=== PATIENT | male | born 1990 | race African-American/Black ===

== ENCOUNTER 2021-07-22 13:56 | Emergency (ER) | payer SELFPAY ==
--- NOTE | 2021-07-22 15:24 | RAD REPORT ---
EXAM DESCRIPTION: RAD - Knee Right 3 View - 07/22/2021 3:15 pm CLINICAL HISTORY: knee pain COMPARISON: No comparisonsNo comparisons FINDINGS: No fracture, dislocation or periosteal reaction.No joint effusion seen. No joint space lydia rowing. No foreign body or other soft tissue abnormality. IMPRESSION: Negative right knee. Clinical concerns for internal derangement or occult bony injury could be further assessed with MR im aging.
--- NOTE | 2021-07-22 15:31 | EDPHYS ---
Physician Documentation [facility] Name: Velasquez Guerrier Jr Age: 30 yrs Sex: Male : 1990 Arrival Date: 07/22/2021 Time: 14:12 Bed Treatment Private MD: ED Physician Kerwin Carlin HPI: 07/22 14:36 This 30 yrs old Black Male presents to ER via Ambulatory with complaints of Knee Pain. jmm 14:36 The patient presents with an injury, pain. Onset: The symptoms/episode began/occurred jmm acutely, just prior to arrival. Modifying factors: The symptoms are alleviated by nothing. the symptoms are aggravated by nothing. Associated signs and symptoms: Pertinent positives: swelling. This is a 30 year old male with a history of asthma, that presents to the ED with complaints of right knee pain. Patient states his right knee cap popped out of place 3 weeks ago and has had pain since. Denies other injury. . Historical: - Allergies: 14:30 No Known Allergies; ss - PMHx: 14:30 Asthma; ss - PSHx: 14:30 jaw SX; B arm SX; ss - Immunization history:: Client reports receiving the 2nd dose of the Covid vaccine. - Social history:: Smoking status: Patient denies any tobacco usage or history of. ROS: 14:36 Constitutional: Negative for fever, chills, and weight loss, Cardiovascular: Negative jmm for chest pain, palpitations, and edema, Respiratory: Negative for shortness of breath, cough, wheezing, and pleuritic chest pain. 14:36 MS/extremity: Positive for injury or acute deformity. 14:36 All other systems are negative. Exam: 14:36 Constitutional: This is a well developed, well nourished patient who is awake, alert, jmm and in no acute distress. Head/Face: atraumatic. Eyes: EOMI, no conjunctival erythema appreciated ENT: Moist Mucus Membranes Neck: Trachea midline, Supple Chest/axilla: Normal chest wall appearance and motion. Cardiovascular: Regular rate and rhythm. No edema appreciated Respiratory: Normal respirations, no respiratory distress appreciated Abdomen/GI: Non distended, soft Back: Normal ROM Skin: General appearance color normal 14:36 Musculoskeletal/extremity: swelling noted to the right knee, FROM appreciated, compartments are soft, full dorsalis pedis, NVI. 14:36 Skin: Appearance: Color: normal in color. 14:36 Neuro: Orientation: is normal, Mentation: is normal, Memory: is normal. 14:36 Psych: Behavior/mood is pleasant, cooperative. Vital Signs: 14:29 BP 125 / 82; Pulse 120; Resp 16; Temp 98.2; Pulse Ox 99% ; Weight 83.91 kg; Height 5 ss ft. 9 in. (175.26 cm); Pain 9/10; 15:47 BP 126 / 88; Pulse 113; Resp 17; Pulse Ox 100% on R/A; Pain 3/10; ld1 14:29 Body Mass Index 27.32 (83.91 kg, 175.26 cm) ss MDM: 14:36 Patient medically screened. [facility] 15:30 Data reviewed: vital signs, nurses notes. Counseling: I had a detailed discussion with elmer the patient and/or guardian regarding: the historical points, exam findings, and any diagnostic results supporting the discharge/admit diagnosis, radiology results, the need for outpatient follow up, to return to the emergency department if symptoms worsen or persist or if there are any questions or concerns that arise at home. 07/22 14:35 Order name: Knee Right 3 View XRAY; Complete Time: 15:29 [facility] 07/22 15:30 Order name: Knee Immobilizer; Complete Time: 15:41 [facility] Administered Medications: No medications were administered Disposition: 18:54 Co-signature as Attending Physician, Kerwin Carlin MD. rn Disposition Summary: 07/22/21 15:31 Discharge Ordered Location: Home [facility] Condition: Stable [facility] Diagnosis - Other internal derangements of right knee [facility] Followup: [facility] - With: Kendall Young MD - When: 2 - 3 days - Reason: Recheck today's complaints, Continuance of care, Re-evaluation by your physician Discharge Instructions: - Discharge Summary Sheet [facility] - Acute Knee Pain, Adult [facility] Forms: - Medication Reconciliation Form [facility] - Work release form [facility] - Thank You Letter [facility] - Antibiotic Education [facility] - Prescription Opioid Use [facility] Prescriptions: - Diclofenac Sodium 75 mg Oral Tablet Sustained Release - take 1 tablet by ORAL route 2 times per day; 30 tablet; Refills: 0, Product [facility] Selection Permitted - orphenadrine citrate 100 mg Oral Tablet Sustained Release - take 1 tablet by ORAL route 2 times per day As needed; 20 tablet; Refills: 0, jmm Product Selection Permitted Signatures: Dispatcher [employer] Julius Batista PA PA jmm Nieto, Roman, MD MD rn Lluvia Frank RN RN ss
--- NOTE | 2021-07-22 15:31 | ER ---
Nurse's Notes [facility] Name: Velasquez Guerrier Jr Age: 30 yrs Sex: Male : 1990 Arrival Date: 07/22/2021 Time: 14:12 Bed Treatment Private MD: Diagnosis: Other internal derangements of right knee Presentation: 07/22 14:29 Chief complaint: Patient states: R knee pain for 3 weeks after falling onto it. Gait ss steady. Coronavirus screen: Vaccine status: Patient reports receiving the 2nd dose of the covid vaccine. At this time, the client does not indicate any symptoms associated with coronavirus-19. Ebola Screen: Patient denies travel to an Ebola-affected area in the 21 days before illness onset. Initial Sepsis Screen: Does the patient meet any 2 criteria? No. Patient's initial sepsis screen is negative. Does the patient have a suspected source of infection? No. Patient's initial sepsis screen is negative. Risk Assessment: Do you want to hurt yourself or someone else? Patient reports no desire to harm self or others. Onset of symptoms was July 09, 2021. 14:29 Method Of Arrival: Ambulatory ss 14:29 Acuity: SHAQUILLE 4 ss Triage Assessment: 14:31 General: Appears uncomfortable, Behavior is cooperative, appropriate for age. Pain: ss Complains of pain in R knee. Musculoskeletal: Reports pain in R knee. Historical: - Allergies: 14:30 No Known Allergies; ss - PMHx: 14:30 Asthma; ss - PSHx: 14:30 jaw SX; B arm SX; ss - Immunization history:: Client reports receiving the 2nd dose of the Covid vaccine. - Social history:: Smoking status: Patient denies any tobacco usage or history of. Screenin:31 Abuse screen: Denies threats or abuse. Nutritional screening: No deficits noted. ss Tuberculosis screening: No symptoms or risk factors identified. 15:47 Fall Risk None identified. ld1 Assessment: 15:47 Reassessment: see triage assessment. ld1 Vital Signs: 14:29 BP 125 / 82; Pulse 120; Resp 16; Temp 98.2; Pulse Ox 99% ; Weight 83.91 kg; Height 5 ss ft. 9 in. (175.26 cm); Pain 9/10; 15:47 BP 126 / 88; Pulse 113; Resp 17; Pulse Ox 100% on R/A; Pain 3/10; ld1 14:29 Body Mass Index 27.32 (83.91 kg, 175.26 cm) ED Course: 14:12 Patient arrived in ED. am2 14:21 Julius Donahue PA is PHCP. [facility] 14:21 Kerwin Carlin MD is Attending Physician. [facility] 14:30 Triage completed. 14:31 Arm band placed on Patient placed in an exam room, on a stretcher. 15:17 Knee Right 3 View XRAY In Process Unspecified. EDMS 15:30 Kendall Young MD is Referral Physician. [facility] 15:47 Patient has correct armband on for positive identification. Placed in gown. Bed in low ld1 position. Call light in reach. Side rails up X2. oil field pipeline supervisor on. Pulse ox on. Door closed. Noise minimized. Warm blanket given. 15:47 No provider procedures requiring assistance completed. Patient did not have IV access ld1 during this emergency room visit. 15:49 Keyona Jordan, RN is Primary Nurse. ld1 Administered Medications: No medications were administered Outcome: 15:31 Discharge ordered by . [facility] 15:47 Discharged to home ambulatory, with family. ld1 15:47 Condition: stable 15:47 Discharge instructions given to patient, family, Instructed on discharge instructions, follow up and referral plans. medication usage, Demonstrated understanding of instructions, follow-up care, medications, Prescriptions given X 2. 15:49 Patient left the ED. ld1 Signatures: Dispatcher [employer] EDAR Julius Donahue PA PA jmm Smirch, Shelby, RN RN [place] 2 Keyona Jordan, RN RN ld1
[2021-07-22 18:04] VITALS: TEMP 98.2
[2021-07-22 18:05] VITALS: BP 126/88; O2SAT 100
== END 2021-07-22 15:49 | disposition home or self-care (01) ==
LOC: ER 13:56
DX: M23.8X1 Other internal derangements of right knee (principal)
CPT/HCPCS: 99284